=== PATIENT | male | born 1955 | race Caucasian/White ===

== ENCOUNTER 2021-10-07 13:23 | Day surgery (SDC) | payer MEDICARE, MEDICAID ==
[2021-10-07] VITALS (20 sets, daily range): BP systolic 63–98; BP diastolic 40–70
[~2021-10-07] VITALS: Ht 182.9 cm; Wt 121.1 kg
[2021-10-07] MEDS ORDERED: normal saline 1000ml 1,000 ML IV SCH (13:45)
[2021-10-07] MEDS ORDERED: fentaNYL/PF 50MCG/1 ML 2ML syringe IV ONE (13:45)
[2021-10-07] MEDS ORDERED: MIDAZolam 1mg/ml 10ml vial IV ONE (13:45)
[2021-10-07] MEDS ORDERED: BISO10TA16 PO (13:53)
[2021-10-07] MEDS ORDERED: SPIR100T5 PO (13:53)
[2021-10-07] MEDS ORDERED: FURO20TA4 PO (13:53)
[2021-10-07] MEDS ORDERED: APIX5TAB3 PO (13:53)
[2021-10-07] MEDS ORDERED: ATOR20TA66 PO (13:53)
[2021-10-07] MEDS ORDERED: AMIO200T61 PO (13:53)
[2021-10-07] MEDS ORDERED: POTA-207 PO (13:53)
[2021-10-07] MEDS ORDERED: ALLO100T PO (13:54)
[2021-10-07] MEDS ORDERED: OMEP20CA16 PO (13:56)
[2021-10-07] MEDS ORDERED: CHOL500050 PO (13:56)
[2021-10-07] MEDS ORDERED: FLO0.4C PO (13:56)
== END 2021-10-07 16:25 | disposition home or self-care (01) ==
LOC: SSTAY O 13:23
PROVIDERS: ATTEND Internal Medicine Interventional Cardiology
DX: I48.91 Unspecified atrial fibrillation (principal); I11.0 Hypertensive heart disease with heart failure; I50.9 Heart failure, unspecified; I42.8 Other cardiomyopathies; E78.5 Hyperlipidemia, unspecified; K21.9 Gastro-esophageal reflux disease without esophagitis; Z79.01 Long term (current) use of anticoagulants; Z79.899 Other long term (current) drug therapy
CPT/HCPCS: 92960; 93005; 94799; J2250; J3010; J7030

== ENCOUNTER 2021-10-28 13:00 | Day surgery (SDC) | payer MEDICARE, MEDICAID ==
[~2021-10-28] VITALS: Ht 182.9 cm; Wt 117.6 kg
[2021-10-28] VITALS (11 sets, daily range): BP systolic 109–143; BP diastolic 73–94
[~2021-10-28 13:00] MED LIST: ALLO100T PO; AMIO200T61 PO; APIX5TAB3 PO; ATOR20TA66 PO; BISO10TA16 PO; CHOL500050 PO; FLO0.4C PO; FURO20TA4 PO; OMEP20CA16 PO; POTA-207 PO; SPIR100T5 PO
[2021-10-28] MEDS ORDERED: MIDAZolam 1mg/ml 10ml vial IV ONE (13:20)
[2021-10-28] MEDS ORDERED: fentaNYL/PF 50MCG/1 ML 2ML syringe IV ONE (13:20)
[2021-10-28] MEDS ORDERED: normal saline 1000ml 1,000 ML IV SCH (13:20)
== END 2021-10-28 16:25 | disposition home or self-care (01) ==
LOC: SSTAY O 13:00
PROVIDERS: ATTEND Internal Medicine Interventional Cardiology
DX: I48.91 Unspecified atrial fibrillation (principal); I48.92 Unspecified atrial flutter; I11.0 Hypertensive heart disease with heart failure; I50.9 Heart failure, unspecified; E78.5 Hyperlipidemia, unspecified; K21.9 Gastro-esophageal reflux disease without esophagitis; I42.8 Other cardiomyopathies; Z79.899 Other long term (current) drug therapy
CPT/HCPCS: 92960; 93005; 94760; 94799; J2250; J3010